=== PATIENT | female | born 1965 | race Caucasian/White ===

== ENCOUNTER 2022-06-28 00:50 | Emergency (ER) | payer OTHER ==
[~2022-06-28] VITALS: Ht 162.6 cm; Wt 85.7 kg
[2022-06-28] MEDS ORDERED: IBUPROFEN 200 MG TABLET ONE (01:49)
[2022-06-28] MEDS ORDERED: IBUPROFEN 600 MG TABLET ONE (01:49)
--- NOTE | 2022-06-28 01:52 | NUR ---
RAD AT BED SIDE
[2022-06-28] MEDS ORDERED: IBUPROFEN 400 MG TABLET PO ONE (02:00)
[2022-06-28] MEDS ORDERED: IBUP-1953 PO (03:20)
--- NOTE | 2022-06-28 03:57 | NUR ---
Patient discharged to home in stable condition. Written and verbal after care instructions given. Patient verbalizes understanding of instruction.
[2022-06-28 03:59] VITALS: BP 118/77
== END 2022-06-28 04:00 | disposition home or self-care (01) ==
LOC: ER 00:58
DX: S93.402A Sprain of unspecified ligament of left ankle, initial encounter (principal); I10 Essential (primary) hypertension; X50.1XXA Overexertion from prolonged static or awkward postures, initial encounter; Y93.89 Activity, other specified; Y92.89 Other specified places as the place of occurrence of the external cause; Y99.0 Civilian activity done for income or pay
CPT/HCPCS: 73610-TC; 73630-TC

== ENCOUNTER 2022-07-01 12:59 | Emergency (ER) | payer OTHER ==
[~2022-07-01] VITALS: Ht 165.1 cm; Wt 86.2 kg
[~2022-07-01 12:59] MED LIST: IBUP-1953 PO
[2022-07-01 13:00] VITALS: BP 128/89
[2022-07-01] MEDS ORDERED: IBUP-1957 PO (14:18)
--- NOTE | 2022-07-01 14:35 | NUR ---
Patient discharged to home in stable condition. Written and verbal after care instructions given. Patient verbalizes understanding of instruction.
== END 2022-07-01 14:36 | disposition home or self-care (01) ==
LOC: ER 13:02
DX: S93.402D Sprain of unspecified ligament of left ankle, subsequent encounter (principal); I10 Essential (primary) hypertension; Z79.1 Long term (current) use of non-steroidal anti-inflammatories (NSAID); W01.0XXD Fall on same level from slipping, tripping and stumbling without subsequent striking against object, subsequent encounter

== ENCOUNTER 2022-07-08 00:12 | Emergency (ER) | payer OTHER ==
[~2022-07-08] VITALS: Ht 165.1 cm; Wt 96.2 kg
[~2022-07-08 00:12] MED LIST changes: +IBUP-1957 PO
[2022-07-08 00:30] VITALS: BP 140/75
== END 2022-07-08 00:38 | disposition home or self-care (01) ==
LOC: ER 00:15
DX: S93.409A Sprain of unspecified ligament of unspecified ankle, initial encounter (principal); I10 Essential (primary) hypertension; Z79.1 Long term (current) use of non-steroidal anti-inflammatories (NSAID); X58.XXXA Exposure to other specified factors, initial encounter; Y93.89 Activity, other specified; Y92.89 Other specified places as the place of occurrence of the external cause; Y99.8 Other external cause status